=== PATIENT | male | born 1990 | race Caucasian/White ===

== ENCOUNTER 2020-01-26 13:46 | Inpatient (IN) | payer OTHER ==
[~2020-01-26] VITALS: Ht 162.6 cm; Wt 75.0 kg
[2020-01-26] MEDS ORDERED: ACETAMINOPHEN 325 MG TABLET PO ONE (14:45)
[2020-01-26 16:35] LABS: GLUCOMETER DEV NAME(LOC) PVLAB.13
[2020-01-26] MEDS ORDERED: ACETAMINOPHEN 325 MG TABLET PO PRN (22:00)
[2020-01-26] MEDS ORDERED: MAGNESIUM HYDROXIDE SUSPENSION 30 ML UDCUP PO PRN (22:00)
[2020-01-26 23:28] LABS: BASOPHILS % (AUTO) 0.3 % (0.0-2.0); EOSINOPHILS % (AUTO) 2.9 % (1.0-6.0); HEMATOCRIT 45.1 % (41-53); HEMOGLOBIN 15.8 g/dL (13.5-17.5); LYMPHOCYTES % (AUTO) 42.1 % (22.0-44.0); MEAN CORPUSCULAR HEMOGLOBIN 30.1 pg (26.0-34.0); MEAN CORPUSCULAR HGB CONC 34.9 G/dL (31.0-37.0); MEAN CORPUSCULAR VOLUME 86 fL (80-100); MONOCYTES # (AUTO) 0.5 K/uL (0.1-1.0); MONOCYTES % (AUTO) 5.1 % (2.0-9.0); NEUTROPHILS # (AUTO) 4.7 K/uL (1.8-7.7); NEUTROPHILS % (AUTO) 49.6 % (40.0-70.0); PLATELET COUNT (AUTO) 400 K/uL (150-450); RED BLOOD CELL COUNT(AUTO) 5.24 MIL/uL (4.50-5.90); RED CELL DISTRIBUTION WIDTH 13.6 % (11.5-14.5)
[2020-01-26 23:46] LABS: ANION GAP 10 mmol/L (8-16); CALCIUM, TOTAL 9.9 mg/dL (8.8-10.5); CARBON DIOXIDE 29 mmol/L (22-29); CHLORIDE 99 mmol/L (98-107); CREATININE 0.88 mg/dL (0.60-1.30); GLOMERULAR FILTR. RATE CALC > 60 mL/min (>60); GLUCOSE,RANDOM 100 mg/dL (70-110); POTASSIUM 3.9 mmol/L (3.5-5.1); SODIUM SERUM 138 mmol/L (136-145); UREA NITROGEN, BLOOD 14 mg/dL (7-18)
[2020-01-27 00:03] LABS: ALANINE AMINOTRANSFERASE 122 U/L (12-78); ALBUMIN 4.6 g/dL (3.4-5.0); ALKALINE PHOSPHATASE 103 U/L (46-116); ASPARTATE AMINOTRANSFERASE 45 U/L (15-37); BILIRUBIN,TOTAL 0.6 mg/dL (0.1-1.0); C-REACTIVE PROTEIN QUANT 0.95 mg/dL (0.00-0.30); FERRITIN 272 ng/mL (26-388); TOTAL PROTEIN, SERUM 8.7 g/dL (6.4-8.2)
[2020-01-27 00:35] VITALS: BP 125/78
[2020-01-27] MEDS: HEPARIN SODIUM,PORCINE 5,000 UNITS/ML VIAL SQ SCH ×4 (01:40→23:41)
[2020-01-27 02:19] LABS: ERYTHROCYTE SEDIMENTATION RATE 11 MM/HR (0-15)
[2020-01-27 08:47] VITALS: BP 116/67
[2020-01-27] MEDS: FAMOTIDINE 20 MG TABLET PO SCH (09:23)
[2020-01-27 15:21] VITALS: BP 124/78
[2020-01-27 18:40] VITALS: BP 123/83
[2020-01-28 04:41] VITALS: BP 124/80
[2020-01-28 08:00] VITALS: BP 105/58
[2020-01-28] MEDS: HEPARIN SODIUM,PORCINE 5,000 UNITS/ML VIAL SQ SCH ×2 (08:05→16:05)
[2020-01-28] MEDS: FAMOTIDINE 20 MG TABLET PO SCH (08:05)
[2020-01-28 10:23] LABS: AMPHET/METH SCREEN,URINE NEGATIVE (NEGATIVE); BARBITURATE SCREEN, URINE NEGATIVE (NEGATIVE); BENZODIAZEPINES SCREEN,URINE NEGATIVE (NEGATIVE); CANNABINOID SCREEN,URINE NEGATIVE (NEGATIVE); METHADONE SCREEN, URINE NEGATIVE (NEGATIVE); OPIATE SCREEN,URINE NEGATIVE (NEGATIVE)
[2020-01-28 10:24] LABS: PHENCYCLIDINE SCREEN,URINE NEGATIVE (NEGATIVE)
[2020-01-28 10:30] LABS: COCAINE SCREEN,URINE NEGATIVE (NEGATIVE)
[2020-01-28 16:00] VITALS: BP 115/74
[2020-01-28 19:14] VITALS: BP 126/78
[2020-01-29] MEDS: HEPARIN SODIUM,PORCINE 5,000 UNITS/ML VIAL SQ SCH ×4 (00:08→23:32)
[2020-01-29 06:08] VITALS: BP 112/61
[2020-01-29 08:30] VITALS: BP 122/65
[2020-01-29] MEDS: FAMOTIDINE 20 MG TABLET PO SCH (08:33)
[2020-01-29 17:07] VITALS: BP 118/68
[2020-01-30] VITALS: BP 118/62
[2020-01-30 06:18] VITALS: BP 112/76
[2020-01-30] MEDS: FAMOTIDINE 20 MG TABLET PO SCH (08:58)
[2020-01-30] MEDS: HEPARIN SODIUM,PORCINE 5,000 UNITS/ML VIAL SQ SCH ×2 (08:58→16:03)
[2020-01-30 09:44] VITALS: BP 114/72
[2020-01-30 16:47] VITALS: BP 111/60
[2020-01-30 20:00] VITALS: BP 122/75
[2020-01-31] MEDS: HEPARIN SODIUM,PORCINE 5,000 UNITS/ML VIAL SQ SCH ×4 (01:12→23:32)
[2020-01-31 05:00] VITALS: BP 117/74
[2020-01-31] MEDS: FAMOTIDINE 20 MG TABLET PO SCH (08:24)
[2020-01-31 08:35] VITALS: BP 121/73
[2020-01-31 16:10] VITALS: BP 110/69
[2020-02-01] VITALS: BP 108/67
[2020-02-01 05:00] VITALS: BP 111/66
[2020-02-01 08:00] VITALS: BP 132/86
[2020-02-01] MEDS: HEPARIN SODIUM,PORCINE 5,000 UNITS/ML VIAL SQ SCH ×3 (08:26→23:32)
[2020-02-01] MEDS: FAMOTIDINE 20 MG TABLET PO SCH (08:26)
[2020-02-01 23:53] VITALS: BP 118/77
[2020-02-02] MEDS: HEPARIN SODIUM,PORCINE 5,000 UNITS/ML VIAL SQ SCH ×3 (08:37→23:35)
[2020-02-02] MEDS: FAMOTIDINE 20 MG TABLET PO SCH (08:37)
[2020-02-02 09:15] VITALS: BP 107/61
[2020-02-02 15:10] VITALS: BP 93/64
[2020-02-02 23:45] VITALS: BP 110/63
[2020-02-03 08:41] VITALS: BP 122/75
[2020-02-03] MEDS: FAMOTIDINE 20 MG TABLET PO SCH (09:22)
[2020-02-03] MEDS: HEPARIN SODIUM,PORCINE 5,000 UNITS/ML VIAL SQ SCH ×2 (09:22→16:00)
[2020-02-03 16:16] VITALS: BP 133/67
[2020-02-03 19:25] VITALS: BP 123/64
[2020-02-04] MEDS: HEPARIN SODIUM,PORCINE 5,000 UNITS/ML VIAL SQ SCH (01:40)
[2020-02-04 04:53] VITALS: BP 106/55
== END 2020-02-04 07:20 | DRG 179 ==
LOC: EMS 13:50 → 5S 23:16 → 6N 23:58 → 5S 01-27 05:13 → 6N 01-27 18:25 → 6S 02-03 18:08
PROVIDERS: ADMIT Internal Medicine; ATTEND Internal Medicine
DX: U07.1 COVID-19 (principal); R74.0 Nonspecific elevation of levels of transaminase and lactic acid dehydrogenase [LDH]
CPT/HCPCS: 82728; 85379; 85651; 86140; J1644